=== PATIENT | male | born 1975 ===

== ENCOUNTER 2017-05-17 03:23 | Emergency (ER) | payer OTHER ==
[2017-05-17 03:36] VITALS: BP 147/96
--- NOTE | 2017-05-17 03:37 | EDM.PDOC ---
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 He states that he developed left- sided chest pain around 02:00 this morning, while driving his truck. It came on gradually. It is sharp/stabbing in character. It is a pain, not a discomfort. It radiated through to his left scapular area. He has not identified any modifiers. He had associated dyspnea, and he developed nausea while in the ambulance, but he did not experience diaphoresis or sense of impending doom. He also developed left anterior shoulder pain around 02:20, then his left hand began tingling around 02:40. EMS gave the patient intranasal fentanyl, which he states helped with the pain, as well as nitroglycerin spray, which she states had no effect on his pain. At present, patient still has the left-sided chest pain and hand tingling, but his left shoulder pain has resolved. No prior similar symptoms. Chest Pain Score (Numeric/FACES): 4 - Related Data Allergies Allergy/AdvReac Type Severity Reaction Status Date / Time erythromycin base Allergy Hives Verified 05/17/17 03:33 iodine Allergy Itching Verified 05/17/17 03:33 shellfish derived Allergy Hives Verified 05/17/17 03:33 Home Meds: Home Meds . 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) ED ROS GENERAL - Review of Systems Review Of Systems: See Below Constitutional: Reports: No Symptoms HEENT: Reports: No Symptoms Respiratory: Reports: No Symptoms Cardiovascular: Reports: No Symptoms Endocrine: Reports: No Symptoms GI/Abdominal: Reports: No Symptoms : Reports: No Symptoms Musculoskeletal: Reports: No Symptoms Skin: Reports: No Symptoms Neurological: Reports: No Symptoms Psychiatric: Reports: No Symptoms Hematologic/Lymphatic: Reports: No Symptoms Immunologic: Reports: No Symptoms ED EXAM, GENERAL - Physical Exam Exam: See Below Exam Limited By: No Limitations General Appearance: Alert, WD/WN, No Apparent Distress Eye Exam: Bilateral Eye: Normal Inspection Ears: Normal External Exam, Hearing Grossly Normal Nose: Normal Inspection, No Blood Throat/Mouth: Normal Inspection, Normal Lips, Normal Voice, No Airway Compromise Head: Atraumatic, Normocephalic Neck: Normal Inspection, Full Range of Motion Respiratory/Chest: No Respiratory Distress, Lungs Clear, Normal Breath Sounds, No Accessory Muscle Use, Chest Non-Tender (Nontender to palpation, however, the left-sided chest pain is reproducible with movement of the left upper extremity) Cardiovascular: Normal Peripheral Pulses, Regular Rate, Rhythm, No Gallop, No JVD, No Murmur, No Rub Peripheral Pulses: 4+: Radial (L), Radial (R) GI/Abdominal: Normal Bowel Sounds, Soft, Non-Tender, No Organomegaly, No Distention, No Abnormal Bruit, No Mass (Male) Exam: Deferred Rectal (Males) Exam: Deferred Back Exam: Normal Inspection, Full Range of Motion, NT Extremities: Normal Inspection, Normal Range of Motion, No Pedal Edema, Normal Capillary Refill, Other (Reproducible tenderness to palpation of the anterior left shoulder) Neurological: Alert, Oriented, Normal Cognition, No Motor/Sensory Deficits Psychiatric: Normal Affect Skin Exam: Warm, Dry, Intact, Normal Color, No Rash Lymphatic: No Adenopathy EKG INTERPRETATION EKG Date: 05/17/17 Time: 03:25 Rhythm: NSR Rate (Beats/Min): 97 [place]: Normal P-Wave: Present QRS: Normal ST-T: Normal QT: Normal Comparison: NA - No Prior EKG Course - Vital Signs Last Recorded V/S: Last Vital Signs Temp 36.6 C 05/17/17 03:33 Pulse 93 05/17/17 03:33 Resp 16 05/17/17 03:33 BP 147/96 H 05/17/17 03:33 Pulse Ox 99 05/17/17 03:33 - Orders/Labs/Meds Orders: Active Orders 24 hr Category Date Time Status EKG Documentation Completion [RC] STAT Care 05/17/17 03:37 Active Chest 2V [CR] Stat Exams 05/17/17 03:37 Taken Labs: Laboratory Tests 05/17/17 05/17/17 05/17/17 Range/Units 03:30 03:30 03:30 WBC 13.43 H (4.23-9.07) K/mm3 RBC 6.11 H (4.63-6.08) M/mm3 Hgb 17.3 (13.7-17.5) gm/L Hct 48.9 (40.1-51.0) % MCV 80.0 (79.0-92.2) fl MCH 28.3 (25.7-32.2) pg MCHC 35.4 (32.2-35.5) g/dl RDW Std Deviation 40.4 (35.1-43.9) fL Plt Count 289 (163-337) K/mm3 MPV 10.5 (9.4-12.3) fl Neutrophils % (Manual) 69 H (40-60) % Band Neutrophils % 0 (0-10) % Lymphocytes % (Manual) 20 (20-40) % Atypical Lymphs % 2 % Monocytes % (Manual) 9 (2-10) % Eosinophils % (Manual) 0 L (0.8-7.0) % Basophils % (Manual) 0 L (0.2-1.2) Platelet Estimate Adequate Plt Morphology Comment Normal Anisocytosis 1+ slight Microcytosis 1+ slight Macrocytosis 1+ slight RBC Morph Comment Abnormal PT 10.5 (8.0-13.0) SECONDS INR 0.97 APTT 24 (22-36) SECONDS D-Dimer, Quantitative 0.23 (0.19-0.59) mg/L Sodium 133 L (136-145) mEq/L Potassium 3.7 (3.5-5.1) mEq/L Chloride 99 (98-107) mEq/L Carbon Dioxide 24 (21-32) mEq/L Anion Gap 13.7 (5-15) BUN 15 (7-18) mg/dL Creatinine 1.2 (0.7-1.3) mg/dL Est Cr Clr Drug Dosing 94.19 mL/min Estimated GFR (MDRD) > 60 (>60) mL/min BUN/Creatinine Ratio 12.5 L (14-18) Glucose 349 H (74-106) mg/dL Calcium 9.3 (8.5-10.1) mg/dL Total Bilirubin 0.6 (0.2-1.0) mg/dL AST 15 (15-37) U/L ALT 36 (16-63) U/L Alkaline Phosphatase 81 (46-116) U/L Troponin I < 0.017 (0.00-0.056) ng/mL B-Natriuretic Peptide (0-100) pg/mL Total Protein 8.0 (6.4-8.2) g/dl Albumin 4.0 (3.4-5.0) g/dl Globulin 4.0 gm/dL Albumin/Globulin Ratio 1.0 (1-2) 05/17/17 Range/Units 03:30 WBC (4.23-9.07) K/mm3 RBC (4.63-6.08) M/mm3 Hgb (13.7-17.5) gm/L Hct (40.1-51.0) % MCV (79.0-92.2) fl MCH (25.7-32.2) pg MCHC (32.2-35.5) g/dl RDW Std Deviation (35.1-43.9) fL Plt Count (163-337) K/mm3 MPV (9.4-12.3) fl Neutrophils % (Manual) (40-60) % Band Neutrophils % (0-10) % Lymphocytes % (Manual) (20-40) % Atypical Lymphs % % Monocytes % (Manual) (2-10) % Eosinophils % (Manual) (0.8-7.0) % Basophils % (Manual) (0.2-1.2) Platelet Estimate Plt Morphology Comment Anisocytosis Microcytosis Macrocytosis RBC Morph Comment PT (8.0-13.0) SECONDS INR APTT (22-36) SECONDS D-Dimer, Quantitative (0.19-0.59) mg/L Sodium (136-145) mEq/L Potassium (3.5-5.1) mEq/L Chloride (98-107) mEq/L Carbon Dioxide (21-32) mEq/L Anion Gap (5-15) BUN (7-18) mg/dL Creatinine (0.7-1.3) mg/dL Est Cr Clr Drug Dosing mL/min Estimated GFR (MDRD) (>60) mL/min BUN/Creatinine Ratio (14-18) Glucose (74-106) mg/dL Calcium (8.5-10.1) mg/dL Total Bilirubin (0.2-1.0) mg/dL AST (15-37) U/L ALT (16-63) U/L Alkaline Phosphatase (46-116) U/L Troponin I (0.00-0.056) ng/mL B-Natriuretic Peptide < 15 (0-100) pg/mL Total Protein (6.4-8.2) g/dl Albumin (3.4-5.0) g/dl Globulin gm/dL Albumin/Globulin Ratio (1-2) - Radiology Interpretation Free Text/Narrative:: Two-view chest radiograph appears to be grossly normal. Cardiac silhouette is within normal limits. No pulmonary vascular congestion. No pleural effusions. No focal infiltrate. No pneumothorax. Formal read per the Radiologist pending. - Re-Assessments/Exams Free Text/Narrative Re-Assessment/Exam: 05/17/17 04:41 Test results discussed with the patient. Today's workup is unremarkable, with exception of his significantly elevated blood sugar of 349. I have ordered 10 units regular insulin, and will refer him to the clinic for definitive diabetes management. As the patient's left-sided chest pain was reproducible with left arm movement, and his left shoulder pain reproducible with palpation, the patient's pain appears to be musculoskeletal in etiology. I advised the patient to quit smoking. Departure - Departure Time of Disposition: 04:41 Disposition: Home, Self-Care 01 Condition: Fair Clinical Impression: Musculoskeletal chest pain, Hyperglycemia due to type 2 diabetes mellitus - Discharge Information Referrals: PCP,Unknown [Primary Care Provider] - Mary Diggs PA-C [[facility] [employer]] - Forms: ED Department Discharge Additional Instructions: You were seen in the emergency room for left-sided chest pain, left shoulder pain, and left hand tingling. Workup in the ER included blood work, an ECG, and a chest x-ray. From a cardiac standpoint, your workup was normal. You have not suffered a heart attack. You do not have a blood clot in your lungs. You do not have pneumonia, or a collapsed lung. The cause of your symptoms is MOST LIKELY due to a muscle spasm or strain in your chest and shoulder. We recommend you take [id number] ibuprofen as needed for discomfort. Your blood sugar was found to be significantly elevated at 349. This means that you have diabetes. Follow-up with Mary Diggs in the clinic at the next available appointment, preferably later today. If any other problems, please do not hesitate to return to the ER. - My Orders Last 24 Hours: My Active Orders 05/17/17 03:37 EKG Documentation Completion [RC] STAT Chest 2V [CR] Stat - Assessment/Plan Last 24 Hours: My Active Orders 05/17/17 03:37 EKG Documentation Completion [RC] STAT Chest 2V [CR] Stat
[2017-05-17] MEDS ORDERED: Insulin Regular, Human 100 Units/ML 3 ML Vial SUBCUT STA (04:38)
--- NOTE | 2017-05-17 09:37 | CR ---
Chest: Two views of the chest were obtained. Comparison: No previous study. Heart size and mediastinum are normal. Lungs are clear. Bony structures show mild degenerative spurring within the lower thoracic spine. Impression: 1. Nothing acute is identified on two-view chest x-ray. Diagnostic code #1
== END 2017-05-17 05:25 | disposition home or self-care (01) ==
LOC: JD.ED 03:23
DX: R07.89 Other chest pain (principal); E11.65 Type 2 diabetes mellitus with hyperglycemia; F17.210 Nicotine dependence, cigarettes, uncomplicated; Z88.1 Allergy status to other antibiotic agents; Z88.8 Allergy status to other drugs, medicaments and biological substances; Z91.013 Allergy to seafood
CPT/HCPCS: 36415; 71020; 80053; 82962; 83880; 84484; 85025; 85379; 85610; 85730; 93005; 96372; 99285; J1817; 99284